=== PATIENT | male | born 1965 ===

== ENCOUNTER 2019-05-16 15:42 | Emergency (ER) | payer BC ==
[2019-05-16 17:40] VITALS: BP 126/86
--- NOTE | 2019-05-16 18:37 | UC ---
Respiratory Complaint HPI - HPI Summary HPI Summary: 54 yo male with 8-10 day hx of sinus pressure and pain right otorrhea no f/c hx right perf TMs no cp or sob - History of Current Complaint Chief Complaint: UCRespiratory Stated Complaint: SINUS Time Seen by Provider: 05/16/19 18:29 Hx Obtained From: Patient Onset/Duration: Gradual Onset, Lasting Days Timing: Constant Severity Initially: Mild Severity Currently: Moderate Pain Intensity: 4 Pain Scale Used: 0-10 Numeric Aggravating Factors: Nothing Alleviating Factors: Nothing Associated Signs And Symptoms: Positive: Nasal Congestion, Sinus Discomfort - Allergies/Home Medications Allergies/Adverse Reactions: Allergies Allergy/AdvReac Type Severity Reaction Status Date / Time cats Allergy Eyes Uncoded 05/16/19 17:41 Itchy/Swollen/Red/Watery lactose intolerance Allergy GI Upset Uncoded 05/16/19 17:41 Home Medications: Home Medications Amoxicillin PO (*) [Amoxicillin 875 MG (*)] 875 mg PO BID #14 tab 05/16/19 [Rx] Decongestant Tab 2 tab PO ONCE PRN 05/16/19 [History Confirmed 05/16/19] Fluticasone NASAL SPRAY 50MCG* [Flonase NASAL SPRAY 50MCG*] 2 spray BOTH NARES BID #1 btl 05/16/19 [Rx] Guaifenesin/Dextromethorphan [Mucinex Dm ER 1,200-60 mg Tab] 1 each PO ONCE PRN 05/16/19 [History Confirmed 05/16/19] Tamsulosin CAP* [Flomax CAP*] 0.4 mg PO BEDTIME 05/16/19 [History Confirmed 02/22] Vicks Dayquil Sinus Cold Flu 1 dose PO Q4H PRN 05/16/19 [History Confirmed 05/15] PMH/Surg Hx/FS Hx/Imm Hx Previously Healthy: Yes - chronic right TM perforation Cardiovascular History: Other Other Cardiovascular History: mitral valve replacement - Surgical History Surgical History: Yes Surgery Procedure, Year, and Place: Cardiac valve replacement 2009. APPENDECTOMY. MULTIPLE EAR SURGERIES. PELLETES REMOVED FROM LEG; Right wrist fx with plate and 7 screws 2017 - Family History Known Family History: Positive: Cardiac Disease, Hypertension - Social History Alcohol Use: Rare Substance Use Type: None Smoking Status (MU): Former Smoker Review of Systems All Other Systems Reviewed And Are Negative: Yes Constitutional: Positive: Negative Skin: Positive: Negative Eyes: Positive: Negative ENT: Positive: Nasal Discharge, Sinus Congestion, Sinus Pain/Tenderness, Other - right otorhea Respiratory: Positive: Negative Cardiovascular: Positive: Negative Gastrointestinal: Positive: Negative Genitourinary: Positive: Negative Motor: Positive: Negative Neurovascular: Positive: Negative Musculoskeletal: Positive: Negative Neurological/Mental Status: Positive: Negative Psychological: Positive: Negative Physical Exam Triage Information Reviewed: Yes Appearance: Well-Appearing, No Pain Distress, Well-Nourished Vital Signs: Initial Vital Signs Temp 98.5 F 05/16/19 17:35 Pulse 70 05/16/19 17:35 Resp 15 05/16/19 17:35 BP 126/86 05/16/19 17:35 Pulse Ox 100 05/16/19 17:35 Vital Signs Reviewed: Yes Eyes: Positive: Conjunctiva Clear ENT: Positive: Nasal congestion, Nasal drainage, Sinus tenderness. 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 Discharge ED - Sign-Out/Discharge Documenting (check all that apply): Patient Departure All imaging exams completed and their final reports reviewed: No Studies - Discharge Plan Condition: Stable Disposition: HOME Prescriptions: Amoxicillin PO (*) [Amoxicillin 875 MG (*)] 875 mg PO BID #14 tab Fluticasone NASAL SPRAY 50MCG* [Flonase NASAL SPRAY 50MCG*] 2 spray BOTH NARES BID #1 btl Patient Education Materials: Sinusitis (ED) Referrals: Leonard Fuentes DO [Primary Care Provider] - Additional Instructions: saline nasal spray 2 sprays each nostril twice daily flonase nasal spray twice daily about 5 minutes after the saline Ler your ENT know if your not improved by next week - Billing Disposition and Condition Condition: STABLE Disposition: Home
== END 2019-05-16 18:49 | disposition home or self-care (01) ==
LOC: UCCORT 15:42
DX: J01.90 Acute sinusitis, unspecified (principal); H66.91 Otitis media, unspecified, right ear; H72.91 Unspecified perforation of tympanic membrane, right ear; Z91.09 Other allergy status, other than to drugs and biological substances; Z91.011 Allergy to milk products; Z87.891 Personal history of nicotine dependence
CPT/HCPCS: 99212; G0463